=== PATIENT | female | born 1940 | race Caucasian/White ===

== ENCOUNTER 2017-11-01 01:03 | Inpatient (IN) ==
[2017-11-01] MEDS ORDERED: Morphine Inj 4 MG/ML Vial IV.PUSH ONE ×2 (01:40→03:16)
[2017-11-01 01:51] LABS: Bilirubin,Urine Negative (Negative); Clarity,Urine Hazy (Clear); Color,Urine Yellow (Yellw/Straw); Glucose,Urine (UA) Negative (Negative); Hyaline Casts,Urine 1 /lpf (0-3); Leukocyte Esterase,Urine Negative (Negative); Mucus,Urine Few /lpf (Occasional); Nitrite,Urine Negative (Negative); Specific Gravity,Urine 1.009 (1.002-1.035)
[2017-11-01 01:51] LABS: Baso # (Auto) 0.1 th/mm3 (0.0-0.2); Baso % (Auto) 0.4 % (0.0-2.0); Eos % (Auto) 0.4 % (0.0-4.0); Hematocrit 35.2 % (35.0-46.0); Hemoglobin 11.8 gm/dL (11.6-15.3); Lymph # (Auto) 0.4 th/mm3 (1.0-4.8); Lymph % (Auto) 3.2 % (9.0-44.0); Mean Corpuscular HGB Conc 33.4 % (32.0-36.0); Mean Corpuscular Hemoglobin 30.4 pg (27.0-34.0); Mean Platelet Volume 8.6 fL (7.0-11.0); Mono # (Auto) 0.9 th/mm3 (0.0-0.9); Mono % (Auto) 6.7 % (0.0-8.0); Neut # (Auto) 12.1 th/mm3 (1.8-7.7); Neut % (Auto) 89.3 % (16.0-70.0); Platelet Count 185 th/mm3 (150-450); Red Blood Count 3.87 mil/mm3 (4.00-5.30); Red Cell Distribution Width 12.8 % (11.6-17.2); White Blood Count 13.6 th/mm3 (4.0-11.0)
[2017-11-01 01:56] LABS: Activated Partial Thrombo Time 24.3 sec (24.3-30.1); Prothrombin Time 10.6 sec (9.8-11.6)
[2017-11-01 02:05] LABS: Alanine Aminotransferase 25 U/L (10-53); Albumin 3.6 g/dL (3.4-5.0); Anion Gap 8 meq/L (5-15); Aspartate Aminotransferase 37 U/L (15-37); Blood Urea Nitrogen 8 mg/dL (7-18); Calcium 7.7 mg/dL (8.5-10.1); Carbon Dioxide 25.1 meq/L (21.0-32.0); Chloride 104 meq/L (98-107); Glomerular Filtration Rate 76 mL/min (>89); Glucose,Random 98 mg/dL (74-106); Potassium 3.8 meq/L (3.5-5.1); Sodium 137 meq/L (136-145)
--- NOTE | 2017-11-01 02:05 | ED ---
HPI General Chief Complaint: Fall Stated Complaint: Fall Time Seen by Provider: 11/01/17 01:23 Source: patient Mode of arrival: EMS Limitations: no limitations History of Present Illness HPI Narrative: 76-year-old female presents to the emergency department from home by EMS transport for evaluation of injury to the right proximal lower extremity status post fall just prior to arrival to the emergency department. Patient admits to drinking bourbon prior to falling. Patient denies hitting her head or having loss of consciousness. Patient denies neck pain back pain chest pain rib pain sternum pain abdominal pain flank pain upper extremity injury or pain or injury to the left lower extremity. Patient reports pain is severe. Patient was unable to get up without any assistance or on her own. Patient was by herself at the time of the fall. Paramedics identified that she had soft tissue swelling affecting the proximal thigh area just distal to the hip. Patient has good peripheral pulses. Patient denies previous injury to the lower extremities but does report previous back surgery. Patient has received 6 mg of morphine IV prior to arrival to the emergency department. Patient denies other concerns or complaints. Patient states she rarely drinks bourbon but had decided to drink bourbon that was left over from her who recently from suicide and was a heavy alcohol consumer. Patient does not report any specific preceding symptoms such as headache dizziness altered mentation visual disturbance chest pain palpitations shortness of breath nausea vomiting abdominal pain flank pain upper or lower extremity new onset numbness tingling or weakness prior to her fall. Patient denies any medication use for anticoagulation. MD complaint: fall Onset (ago): minute(s) Fall from: standing Fall witnessed: no Place fall occurred: home Loss of consciousness: none Prolonged down time: no Symptoms prior to fall: none Context: alcohol use Location of injury: other Location of injury - extremities: Right: thigh Severity: severe Quality: aching Associated symptoms (after fall): unable to walk Related Data Home Medications Medication Instructions Recorded Confirmed alprazolam [Xanax] 0.5 mg PO HS 11/01/17 11/01/17 clonidine HCl 0.5 mg PO DAILY 11/01/17 11/01/17 lisinopril 40 mg PO DAILY 11/01/17 11/01/17 ranitidine HCl 150 mg PO DAILY 11/01/17 11/01/17 Allergies Allergy/AdvReac Type Severity Reaction Status Date / Time diatrizoate meglumine Allergy Severe ANAPHYLAXIS Verified 11/01/17 01:17 gadobenic acid Allergy Severe ANAPHYLAXIS Verified 11/01/17 01:17 gadodiamide Allergy Severe ANAPHYLAXIS Verified 11/01/17 01:17 gadoteridol Allergy Severe ANAPHYLAXIS Verified 11/01/17 01:17 iodixanol Allergy Severe ANAPHYLAXIS Verified 11/01/17 01:17 iohexol Allergy Severe ANAPHYLAXIS Verified 11/01/17 01:17 oxycodone Allergy Severe VOMITING Verified 11/01/17 01:17 Review of Systems ROS: all other systems reviewed are negative [facility] Medical History Medical History Barretts esophagus (Acute) Depression (Acute) GERD (gastroesophageal reflux disease) (Acute) Hypertension (Acute) Surgical History Surgical History History of partial hysterectomy (Acute) Hx of cholecystectomy (Acute) Hx of tonsillectomy (Acute) Social History Social History Substance History: No History of Abuse Smoking Status: Former smoker How Often Do You Have a Drink Containing Alcohol: Never Recent Travel in [place] within the Last 8 Weeks: No Recent Out of Country Travel within the Last 8 Weeks: No Immunization History Tetanus Immunization: Unsure Hx Influenza Vaccine This Season: No Exam Narrative Exam Narrative: GENERAL: Well-nourished, well-developed patient. Pleasant female in no acute distress no respiratory distress resting supine with GCS of 15 SKIN: Focused skin assessment warm/dry. HEAD: Normocephalic. Atraumatic no scalp soft tissue swelling tenderness abrasion ecchymosis and no laceration. EYES: No scleral icterus. No injection or drainage. NECK: Supple, trachea midline. No JVD or lymphadenopathy. No midline tenderness to direct palpation along the cervical spine no bony step-off. CARDIOVASCULAR: Regular rate and rhythm without murmurs, gallops, or rubs. RESPIRATORY: Breath sounds equal bilaterally. No accessory muscle use. GASTROINTESTINAL: Abdomen soft, non-tender, nondistended. MUSCULOSKELETAL: No cyanosis, or edema. Bilateral upper extremities and left lower extremity exams are grossly within normal range except for some various staged bruising; attention right lower extremity mild external rotation dorsalis pedis pulse and posterior tibialis pulses 2+ to palpation with brisk capillary refill less than 2 seconds per digit sensation intact and motor intact ankle and distally. Soft tissue swelling is noted to the proximal thigh area and palpation of pelvis increases complaint of thigh pain. BACK: Nontender without obvious deformity. No CVA tenderness. Course Reevaluation(s) Reevaluation #1: admitted to [facility] MD Dr Davenport Time: 03:33 Initial Documented Vital Signs Temperature 98.1 F 11/01/17 01:20 Pulse Rate 94 H 11/01/17 01:20 Respiratory Rate 18 11/01/17 01:20 Blood Pressure 174/67 H 11/01/17 01:20 Pulse Oximetry 96 11/01/17 01:20 Last Documented Vital Signs Temperature 98.1 F 11/01/17 01:20 Pulse Rate 97 H 11/01/17 02:19 Respiratory Rate 20 11/01/17 02:19 Blood Pressure 169/78 H 11/01/17 02:19 Pulse Oximetry 96 11/01/17 02:20 Medical Decision Making [facility] Narrative Medical decision making narrative: 76-year-old female presents to the emergency department for injury sustained status post a reported non-syncopal slip and fall with injury to the proximal right lower extremity. Patient placed on monitor with continuous pulse oximetry IV access obtained specimens collected and sent for resulting imaging studies ordered; patient administered morphine sulfate 3 mg IV had already received 6 mg IV prior to arrival to the emergency department also given a dose of Zofran 4 mg IV and maintenance Chest x-ray reveals no acute process femur x-ray is consistent with hip x-ray which shows intertrochanteric fracture of the right hip. Pelvis is unremarkable. Lab values are remarkable to a total white cell count 13,600 most likely reflects stress demargination. Chemistries in normal range. Call placed to medicine service for admission for hip fracture will consult or so. Medical Screen Exam Complete: Yes Emergency Medical Condition: Yes Lab Data Result diagrams: 11/01/17 01:32 11/01/17 01:32 Lab Results 11/01/17 11/01/17 11/01/17 Range/Units 01:32 01:32 01:32 WBC 13.6 H (4.0-11.0) th/mm3 RBC 3.87 L (4.00-5.30) mil/mm3 Hgb 11.8 (11.6-15.3) gm/dL Hct 35.2 (35.0-46.0) % MCV 91.0 (80.0-100.0) fL MCH 30.4 (27.0-34.0) pg MCHC 33.4 (32.0-36.0) % RDW 12.8 (11.6-17.2) % Plt Count 185 (150-450) th/mm3 MPV 8.6 (7.0-11.0) fL Neut % (Auto) 89.3 H (16.0-70.0) % Lymph % (Auto) 3.2 L (9.0-44.0) % [place] % (Auto) 6.7 (0.0-8.0) % Eos % (Auto) 0.4 (0.0-4.0) % Baso % (Auto) 0.4 (0.0-2.0) % Neut # (Auto) 12.1 H (1.8-7.7) th/mm3 Lymph # (Auto) 0.4 L (1.0-4.8) th/mm3 [place] # (Auto) 0.9 (0.0-0.9) th/mm3 Eos # (Auto) 0.0 (0.0-0.4) th/mm3 Baso # (Auto) 0.1 (0.0-0.2) th/mm3 WBC Differential . Differential Comment Auto diff final PT 10.6 (9.8-11.6) sec INR 1.0 Ratio APTT 24.3 (24.3-30.1) sec Sodium 137 (136-145) meq/L Potassium 3.8 (3.5-5.1) meq/L Chloride 104 (98-107) meq/L Carbon Dioxide 25.1 (21.0-32.0) meq/L Anion Gap 8 (5-15) meq/L BUN 8 (7-18) mg/dL Creatinine 0.74 (0.50-1.00) mg/dL Estimated GFR 76 L (>89) mL/min Random Glucose 98 (74-106) mg/dL Calcium 7.7 L (8.5-10.1) mg/dL Total Bilirubin 0.4 (0.2-1.0) mg/dL AST 37 (15-37) U/L ALT 25 (10-53) U/L Alkaline Phosphatase 61 (45-117) U/L Total Protein 6.3 L (6.4-8.2) g/dL Albumin 3.6 (3.4-5.0) g/dL Urine Color (Yellw/Straw) Urine Clarity (Clear) Urine pH (5.0-8.5) Ur Specific [place] (1.002-1.035) Urine Protein (Neg-Trace) mg/dL Urine Glucose (UA) (Negative) mg/dL Urine Ketones (Negative) mg/dL Urine Occult Blood (Negative) Urine Nitrate (Negative) Urine Bilirubin (Negative) Urine Urobilinogen (Less than 2) mg/dL Ur Leukocyte Esterase (Negative) Urine WBC (0-5) /hpf Hyaline Casts (0-3) /lpf Urine Mucus (Occasional) /lpf Serum Alcohol 108 H (0-5) mg/dL Blood Type Blood Type Recheck Antibody Screen 11/01/17 11/01/17 Range/Units 01:32 01:40 WBC (4.0-11.0) th/mm3 RBC (4.00-5.30) mil/mm3 Hgb (11.6-15.3) gm/dL Hct (35.0-46.0) % MCV (80.0-100.0) fL MCH (27.0-34.0) pg MCHC (32.0-36.0) % RDW (11.6-17.2) % Plt Count (150-450) th/mm3 MPV (7.0-11.0) fL Neut % (Auto) (16.0-70.0) % Lymph % (Auto) (9.0-44.0) % [place] % (Auto) (0.0-8.0) % Eos % (Auto) (0.0-4.0) % Baso % (Auto) (0.0-2.0) % Neut # (Auto) (1.8-7.7) th/mm3 Lymph # (Auto) (1.0-4.8) th/mm3 [place] # (Auto) (0.0-0.9) th/mm3 Eos # (Auto) (0.0-0.4) th/mm3 Baso # (Auto) (0.0-0.2) th/mm3 WBC Differential Differential Comment PT (9.8-11.6) sec INR Ratio APTT (24.3-30.1) sec Sodium (136-145) meq/L Potassium (3.5-5.1) meq/L Chloride (98-107) meq/L Carbon Dioxide (21.0-32.0) meq/L Anion Gap (5-15) meq/L BUN (7-18) mg/dL Creatinine (0.50-1.00) mg/dL Estimated GFR (>89) mL/min Random Glucose (74-106) mg/dL Calcium (8.5-10.1) mg/dL Total Bilirubin (0.2-1.0) mg/dL AST (15-37) U/L ALT (10-53) U/L Alkaline Phosphatase (45-117) U/L Total Protein (6.4-8.2) g/dL Albumin (3.4-5.0) g/dL Urine Color Yellow (Yellw/Straw) Urine Clarity Hazy H (Clear) Urine pH 5.0 (5.0-8.5) Ur Specific [place] 1.009 (1.002-1.035) Urine Protein Negative (Neg-Trace) mg/dL Urine Glucose (UA) Negative (Negative) mg/dL Urine Ketones Negative (Negative) mg/dL Urine Occult Blood Small H (Negative) Urine Nitrate Negative (Negative) Urine Bilirubin Negative (Negative) Urine Urobilinogen Less than 2 (Less than 2) mg/dL Ur Leukocyte Esterase Negative (Negative) Urine WBC Less than 1 (0-5) /hpf Hyaline Casts 1 (0-3) /lpf Urine Mucus Few H (Occasional) /lpf Serum Alcohol (0-5) mg/dL Blood Type A Negative Blood Type Recheck Required Antibody Screen Negative Imaging Data Radiologist's impression: Chest X-Ray 11/01/17 01:23 CONCLUSION: No acute cardiopulmonary disease. Femur X-Ray 11/01/17 01:23 CONCLUSION: Seen in the hip reported separately. Remaining femur is intact. Hip X-Ray 11/01/17 01:23 CONCLUSION: Right intertrochanteric hip fracture. Discharge Plan Discharge Disposition Patient Disposition: 30 Still Patient Discharge Condition Condition: Stable Discharge Details Diagnosis: Closed hip fracture Physicians Team ED Provider: Brandi Martinez Primary Care Provider: UNKNOWN, Attending Provider: Estrellita Davenport Discharge Interventions Interventions: Vital Signs Last Done: 11/01/17 02:19 Status ED Status: Admitted Patient
[2017-11-01 02:08] LABS: Alkaline Phosphatase 61 U/L (45-117); Total Protein 6.3 g/dL (6.4-8.2)
[2017-11-01 02:09] LABS: Alcohol 108 mg/dL (0-5)
--- NOTE | 2017-11-01 02:32 | XR ---
EXAM DATE: 11/01/2017 2:16 AM EDT AGE/SEX: 76 years / Female INDICATIONS: Right hip pain post fall. CLINICAL DATA: This is the patient's initial encounter. Patient reports that signs and symptoms have been present for 1 day and indicates a pain score of 10/10. MEDICAL/SURGICAL HISTORY: None. None. COMPARISON: [facility] [place] AP PELVIS 2V, 11/01/2017. . FINDINGS: Seen in the right hip report separately. The remaining aspects of the femur are intact. Soft tissues are unremarkable. Mild osteoarthritis involving the knee joint. CONCLUSION: Seen in the hip reported separately. Remaining femur is intact. Electronically signed by: Pranav Dos Santos MD 11/01/2017 2:31 AM EDT
--- NOTE | 2017-11-01 02:32 | XR ---
EXAM DATE: 11/01/2017 2:16 AM EDT AGE/SEX: 76 years / Female INDICATIONS: Evaluate for any cardiopulmonary diseases as patient is being pre-oped for hip surgery, fall. CLINICAL DATA: This is the patient's initial encounter. Patient reports that signs and symptoms have been present for 1 day and indicates a pain score of 0/10. MEDICAL/SURGICAL HISTORY: None. None. COMPARISON: [facility], XR CHEST PA AND LAT, 04/13/2017. . FINDINGS: A single AP view of the chest demonstrates the lungs to be symmetrically aerated without evidence of mass, infiltrate or effusion. The cardiomediastinal contours are unremarkable. Osseous structures a re intact. CONCLUSION: No acute cardiopulmonary disease. Electronically signed by: Pranav Dos Santos MD 11/01/2017 2:30 AM EDT
--- NOTE | 2017-11-01 02:33 | XR ---
EXAM DATE: 11/01/2017 2:17 AM EDT AGE/SEX: 76 years / Female INDICATIONS: Right hip pain post fall. CLINICAL DATA: This is the patient's initial encounter. Patient reports that signs and symptoms have been present for 1 day and indicates a pain score of 10/10. MEDICAL/SURGICAL HISTORY: None. None. COMPARISON: No prior exams available for comparison. FINDINGS: 3 views of the pelvis and right hip reveal acute intertrochanteric hip fracture on the right. Femoral head remains in contact with the acetabulum. The remaining pelvis is intact. CONCLUSION: Right intertrochanteric hip fracture. Electronically signed by: Pranav Dos Santos MD 11/01/2017 2:31 AM EDT
[2017-11-01] MEDS ORDERED: Pantoprazole Inj 40 MG Vial IV.PUSH ONE (03:16)
[2017-11-01] MEDS ORDERED: Ketorolac Inj 30 MG/ML (IVP) Vial IV.PUSH ONE (03:16)
[2017-11-01] MEDS ORDERED: Acetaminophen 325 MG Tablet PO PRN (04:06)
[2017-11-01] MEDS ORDERED: Morphine Inj 4 MG/ML Vial IV.PUSH PRN ×3 (04:10→06:50)
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
[2017-11-01] MEDS ORDERED: Metoprolol Tartrate 25 MG Tablet PO SCH (06:15)
[2017-11-01] MEDS ORDERED: Chlorhexidine Gluconate 2% 1 Pack (2 Cloths) TOPICAL SCH (06:15)
[2017-11-01] MEDS ORDERED: Famotidine PF Inj 20 MG/2 ML Vial ONE (06:20)
[2017-11-01] MEDS ORDERED: fentaNYL Citrate Inj 100 MCG/2 ML Ampul ONE (06:20)
[2017-11-01] MEDS ORDERED: Bisacodyl 10 MG Supp RECTAL PRN (06:50)
[2017-11-01] MEDS ORDERED: Zolpidem Tartrate 5 MG Tablet PO PRN (06:50)
[2017-11-01] MEDS ORDERED: Sodium Chlor 0.9% Inj 500 ML IV.SIG SCH (07:00)
--- NOTE | 2017-11-01 07:27 | MB ---
cc: Sudeep Jenkins MD DATE: 11/01/2017 REASON FOR CONSULTATION: Right intertrochanteric hip fracture. HISTORY OF PRESENT ILLNESS: A 76-year-old female with past history of hypertension, asthma, who presented to [facility] Emergency Room after a mechanical fall. She was having some alcohol the evening before and tripped and fell landing on the right hip. She developed severe onset of right hip pain. She was unable to stand, bear weight, or ambulate. She was brought in by ambulance to [facility] Emergency Room. X-rays confirmed evidence of displaced comminuted right intertrochanteric hip fracture. Pain is severe and constant. She is worse with any movement. No numbness, tingling, nerve referred symptoms. PAST MEDICAL HISTORY: Hypertension, asthma, Cordon esophagitis, depression, gastric reflux, hypertension. PAST SURGICAL HISTORY: Includes partial hysterectomy, cholecystectomy, tonsillectomy. FAMILY HISTORY: Reviewed and noncontributory. SOCIAL HISTORY: Former smoker, occasionally drinks alcohol. No substance abuse. REVIEW OF SYSTEMS: Negative for 10 systems other than in HPI. HOME MEDICATIONS: Reviewed per the [facility], which includes 1. Xanax. 2. Clonidine. 3. Lisinopril. 4. Zantac. PHYSICAL EXAMINATION: VITAL SIGNS: Temperature 98.1, pulse 94, respirations 18, blood pressure 174/67. GENERAL: The patient is awake, alert, lying in bed, in mild distress. She is anxious. HEENT: Normocephalic, atraumatic. Pupils round. Extraocular muscles intact. NECK: Supple. LUNGS: Clear. HEART: Regular rate and rhythm. ABDOMEN: Soft, nontender. EXTREMITIES: The right leg is shortened and externally rotated. She has pain with passive motion of the right hip. She can flex and extend her ankle and toes distally. Sensation appears intact distally. LABORATORY DATA: White blood cell count is 13.6, hemoglobin is 11, hematocrit is 35, platelet is 185, BUN is 8, creatinine is 0.74. Glucose is 98. X-rays of right hip reveal a comminuted displaced right intertrochanteric hip fracture. IMPRESSION: A 76-year-old female, status post fall, right displaced intertrochanteric hip fracture. PLAN: I discussed the diagnosis and treatment options, nonoperative treatment versus surgery. Surgery would consist of open reduction and internal fixation with intramedullary nailing. The risks of surgery were discussed, which include, but are not limited to, anesthesia, bleeding, infection, damage to nerves and blood vessels, pain, stiffness, failure of hardware, nonunion, malunion, blood clots, pulmonary illness, and even . The patient's pain was very severe. She understood the risks and does wish to proceed with surgery. Written consent has been obtained. The surgical site has been marked. Sudeep Jenkins MD JWM/ts , 06:50 AM , 06:58 AM
[2017-11-01] MEDS ORDERED: Post-op Orders (for Pharmacy) OTHER STA (08:35)
--- NOTE | 2017-11-01 09:06 | MP ---
cc: Sudeep Jenkins MD DATE OF OPERATION: 11/01/2017 PREOPERATIVE DIAGNOSIS: Right intertrochanteric hip fracture. POSTOPERATIVE DIAGNOSIS: Right intertrochanteric hip fracture. PROCEDURE PERFORMED: Intramedullary nailing, right intertrochanteric hip fracture. SURGEON: Sudeep Jenkins MD. GAUGE AND INSTRUMENT INSPECTOR: THOMAS Mcleod. ANESTHESIA: General. ESTIMATED BLOOD LOSS: 200 mL. COMPLICATIONS: None. IMPLANTS USED: Synthes. JUSTIFICATION: This patient is a 76-year-old female who fell and sustained a displaced comminuted right intertrochanteric hip fracture. She presents to [facility] Emergency Room. X-rays confirmed the above named findings. Orthopedic surgery counseled. The patient was counseled as to the risks, benefits, and alternatives to the above-named proposed surgical procedure. She did wish to proceed with surgery. PROCEDURE IN DETAIL: Written consent was obtained. The patient was identified by name, taken to the operating room, placed supine on the bed. General anesthesia was administered, as well as 2 grams of IV Ancef and 1 gram IV vancomycin. The right foot placed in a padded traction boot. The left leg placed in a padded well leg hartman. All bony prominences and pressure points were well padded. The right hip and right lower extremity were prepped and draped using isopropyl alcohol, Hibiclens solution, and ChloraPrep solution. After a timeout was performed, a longitudinal incision was made in the lateral aspect of the right hip. The fascial layer was incised. A guidewire was used to gain entrance into the intramedullary canal of the femur from the tip of the greater trochanter. This was followed by cannulated entry reamer. Subsequently, a Synthes 11 x 170 mm titanium trochanteric femoral nail was inserted into the intramedullary canal of the femur. The 130-degree jig was used to place the guide pin centered in the femoral head on the AP and lateral fluoroscopic projections. This was followed by placement of a 95 mm partially threaded titanium lag screw. The top locking screw was then secured to create a fixed angle sliding construct and compression was achieved across the fracture. Fluoroscopic imaging again confirmed hardware placement and fracture reduction. Distally, the locking jig was used to place a single lateral to medial transverse static locking screw. Fluoroscopic imaging again confirmed hardware placement and fracture reduction. The surgical wound was thoroughly irrigated with sterile saline solution. The fascial layer was closed with #1 Vicryl suture, subcutaneous layer with 2-0 Vicryl suture, and skin was closed with Dermabond. Sterile dressing applied. The patient tolerated the procedure well. No intraoperative complications noted. Randy Richards PA-C, was present for the entire procedure to include patient positioning and the procedure itself. The medical necessity of a physician clinical laboratory assistant was indicated in this case due to complexity of the procedure. He assisted with appropriate manipulation of the leg and also retraction of muscle, tendon, bone, and neurovascular structures. He assisted with fracture reduction and implantation of the internal fixation device. MD ADAM Sharma/derek , 08:17 AM , 08:24 AM
[2017-11-01] MEDS: Sod Chloride 0.9% Inj 1,000 ML IV.CONT SCH ×2 (09:23→17:53)
[2017-11-01] MEDS: Multivitamin/Minerals Therapeutic Tablet PO SCH (10:24)
[2017-11-01] MEDS: Famotidine 20 MG Tablet PO SCH (10:25)
[2017-11-01] MEDS: Senna/Docusate Sodium 8.6/50 MG Tablet PO SCH ×2 (10:26→21:22)
[2017-11-01] MEDS: Lisinopril 20 MG Tablet PO SCH (10:26)
[2017-11-01] MEDS: Folic Acid 1 MG Tablet PO SCH (10:26)
[2017-11-01] MEDS ORDERED: Lidocaine PF 1% Inj 5 ML Syringe INFILTRATN ONE (12:00)
[2017-11-01] MEDS ORDERED: Phenylephrine/NS 1000 MCG/10ML Syringe IV.PUSH ONE (12:00)
--- NOTE | 2017-11-01 12:57 | P.PN ---
Subjective Interval history: Follow up right hip fracture s/p repair 11/01/17-patient seen and examined; s/p right hip repair this AM. patient denies any pain. 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, however she is refusing any psychiatry eval Physical Exam Vital signs: Vital Signs 11/01/17 01:20 11/01/17 02:19 11/01/17 02:20 Temperature 98.1 F Pulse Rate 94 H 97 H Respiratory Rate 18 20 Blood Pressure 174/67 H 169/78 H Pulse Oximetry 96 96 96 11/01/17 05:49 11/01/17 08:00 11/01/17 08:35 Temperature 97.8 F 97.5 F L 97.6 F Pulse Rate 107 H 111 H 105 H Respiratory Rate 19 20 20 Blood Pressure 148/91 H 129/77 151/72 H Pulse Oximetry 95 94 L 95 11/01/17 08:45 11/01/17 09:00 11/01/17 09:10 Temperature Pulse Rate 118 H 110 H 113 H Respiratory Rate 18 15 Blood Pressure 160/66 H 153/69 H Pulse Oximetry 95 100 99 11/01/17 09:13 11/01/17 10:42 Temperature 97.8 F Pulse Rate 113 H Respiratory Rate 18 Blood Pressure 151/65 H Pulse Oximetry 99 98 Intake & Output 10/31/17 11/01/17 11/01/17 18:59 06:59 18:59 Intake Total 1500 / 1500 Output Total 500 / 500 200 / 200 Balance -500 / -500 1300 / 1300 Weight 56.6 kg Intake: Anesthesia Amount 1500 / 1500 Output: Estimated Blood Loss 200 / 200 Urine Amount (Catheter) 500 / 500 Indwelling Urethral Catheter 500 / 500 Other: Weight On Admission 56.699 kg Narrative: GENERAL: NAD SKIN: Warm and dry. HEAD: Normocephalic. EYES: No scleral icterus. No injection or drainage. NECK: Supple, trachea midline. No JVD or lymphadenopathy. CARDIOVASCULAR: Regular rate and rhythm without murmurs, gallops, or rubs. RESPIRATORY: Breath sounds equal bilaterally. No accessory muscle use. GASTROINTESTINAL: Abdomen soft, non-tender, nondistended. MUSCULOSKELETAL: No cyanosis, or edema. right hip repair-neurovascular intact BACK: Nontender without obvious deformity. No CVA tenderness. - Urinary Catheter Management Indwelling Urethral Catheter Cath placed during this visit: yes Reason for continuing: Hourly intake/output Insertion date: 11/01/17 Insertion time: 03:52 Results - Labs CBC & Chem 7: 11/01/17 01:32 11/01/17 01:32 Laboratory Results - last 24 hr 11/01/17 11/01/17 11/01/17 01:32 01:32 01:32 WBC 13.6 H RBC 3.87 L Hgb 11.8 Hct 35.2 MCV 91.0 MCH 30.4 MCHC 33.4 RDW 12.8 Plt Count 185 MPV 8.6 Neut % (Auto) 89.3 H Lymph % (Auto) 3.2 L [place] % (Auto) 6.7 Eos % (Auto) 0.4 Baso % (Auto) 0.4 Neut # (Auto) 12.1 H Lymph # (Auto) 0.4 L [place] # (Auto) 0.9 Eos # (Auto) 0.0 Baso # (Auto) 0.1 WBC Differential . Differential Comment Auto diff final PT 10.6 INR 1.0 APTT 24.3 Sodium 137 Potassium 3.8 Chloride 104 Carbon Dioxide 25.1 Anion Gap 8 BUN 8 Creatinine 0.74 Estimated GFR 76 L Random Glucose 98 Calcium 7.7 L Total Bilirubin 0.4 AST 37 ALT 25 Alkaline Phosphatase 61 Total Protein 6.3 L Albumin 3.6 Urine Color Urine Clarity Urine pH Ur Specific [place] Urine Protein Urine Glucose (UA) Urine Ketones Urine Occult Blood Urine Nitrate Urine Bilirubin Urine Urobilinogen Ur Leukocyte Esterase Urine WBC Hyaline Casts Urine Mucus Serum Alcohol 108 H Blood Type Blood Type Recheck Antibody Screen 11/01/17 11/01/17 01:32 01:40 WBC RBC Hgb Hct MCV MCH MCHC RDW Plt Count MPV Neut % (Auto) Lymph % (Auto) [place] % (Auto) Eos % (Auto) Baso % (Auto) Neut # (Auto) Lymph # (Auto) [place] # (Auto) Eos # (Auto) Baso # (Auto) WBC Differential Differential Comment PT INR APTT Sodium Potassium Chloride Carbon Dioxide Anion Gap BUN Creatinine Estimated GFR Random Glucose Calcium Total Bilirubin AST ALT Alkaline Phosphatase Total Protein Albumin Urine Color Yellow Urine Clarity Hazy H Urine pH 5.0 Ur Specific [place] 1.009 Urine Protein Negative Urine Glucose (UA) Negative Urine Ketones Negative Urine Occult Blood Small H Urine Nitrate Negative Urine Bilirubin Negative Urine Urobilinogen Less than 2 Ur Leukocyte Esterase Negative Urine WBC Less than 1 Hyaline Casts 1 Urine Mucus Few H Serum Alcohol Blood Type A Negative Blood Type Recheck Required Antibody Screen Negative - Imaging Impressions Chest X-Ray 11/01/17 01:23 CONCLUSION: No acute cardiopulmonary disease. Femur X-Ray 11/01/17 01:23 CONCLUSION: Seen in the hip reported separately. Remaining femur is intact. Hip X-Ray 11/01/17 01:23 CONCLUSION: Right intertrochanteric hip fracture. Assessment and Plan - Plan 76 years old female with 1. Right intertrochanteric hip fracture s/p Right hip repair 11/01/17 management per Ortho PT to treat and eval Pain management accordingly 2. Hypertension Continue home clonidine and lisinopril 3. Anxiety/depression Continue home Xanax patient does not want any eval from Psychiatry 4. GERD Continue home ranitidine
--- NOTE | 2017-11-01 17:06 | ECG ---
Date Performed: 11/01/2017 Time Performed: 02:11:12 PTAGE: 76 years EKG: Sinus rhythm POSSIBLE LEFT ATRIAL ENLARGEMENT MARKED LEFT AXIS DEVIATION RIGHT BUNDLE BRANCH BLOCK ABNORMAL ECG NO PREVIOUS TRACING DOCTOR: Sunil Umanzor Interpretating Date/Time 11/01/2017 17:05:09
[2017-11-01] MEDS: ceFAZolin Inj 2,000 MG in Sodium Chlor 0.9% Inj 80 ML IV.SIG SCH ×2 (17:52→22:47)
[2017-11-01] MEDS: ALPRAZolam 0.5 MG Tablet PO SCH (21:22)
[2017-11-01] MEDS ORDERED: Famotidine 20 MG Tablet PO SCH (22:00)
[2017-11-02] MEDS: Sod Chloride 0.9% Inj 1,000 ML IV.CONT SCH ×2 (06:28→19:16)
[2017-11-02] MEDS: ceFAZolin Inj 2,000 MG in Sodium Chlor 0.9% Inj 80 ML IV.SIG SCH (06:29)
--- NOTE | 2017-11-02 08:48 | P.PNOP ---
Subjective Interval history: pain tolerable. has anxiety. Physical Exam Vital signs: Vital Signs 11/01/17 09:00 11/01/17 09:10 11/01/17 09:13 Temperature 97.8 F Pulse Rate 110 H 113 H 113 H Respiratory Rate 15 18 Blood Pressure 153/69 H 151/65 H Pulse Oximetry 100 99 99 11/01/17 10:42 11/01/17 12:00 11/01/17 16:00 Temperature 97.3 F L 97.2 F L Pulse Rate 120 H 103 H Respiratory Rate 20 16 Blood Pressure 117/65 96/57 L Pulse Oximetry 98 93 L 94 L 11/01/17 20:00 11/02/17 00:00 11/02/17 04:00 Temperature 98.0 F 97.7 F 98.5 F Pulse Rate 104 H 97 H 100 H Respiratory Rate 22 18 17 Blood Pressure 100/54 L 106/61 103/57 L Pulse Oximetry 93 L 98 97 Intake & Output 11/01/17 11/02/17 11/02/17 18:59 06:59 18:59 Intake Total 2600 / 2600 100 / 100 100 / 100 Output Total 200 / 200 650 / 650 Balance 2400 / 2400 -550 / -550 100 / 100 Weight 56.6 kg Intake: IV 1100 / 1100 100 / 100 100 / 100 LR 1000 mL Inj 1,000 ML @ 100 1000 / 1000 mls/hr IV.CONT .Q10H FRANCHESCA Rx#: [id number] Ancef Inj 2,000 MG In NS Inj 80 100 / 100 100 / 100 100 / 100 ML @ 200 mls/hr IV.SIG Q8H FRANCHESCA Rx#:[id number] Anesthesia Amount 1500 / 1500 Output: Urine 650 / 650 Estimated Blood Loss 200 / 200 Other: # Bowel Movements 2 Narrative: in bed, nad dressing c/d/i neg homans nvi - Urinary Catheter Management Indwelling Urethral Catheter Cath placed during this visit: yes Reason for continuing: Hourly intake/output Insertion date: 11/01/17 Insertion time: 03:52 Results - Labs CBC & Chem 7: 11/01/17 01:32 11/01/17 01:32 Assessment and Plan - Ortho Post Op Day # 1 - Assessment and Plan s/p L troch nail 50% pwb daily dressing changes asa 81 d/c planning to snf f/up dr. cadet 2 weeks
[2017-11-02 09:05] LABS: Baso % (Auto) 0.4 % (0.0-2.0); Eos % (Auto) 0.5 % (0.0-4.0); Hematocrit 25.2 % (35.0-46.0); Hemoglobin 8.6 gm/dL (11.6-15.3); Lymph # (Auto) 0.7 th/mm3 (1.0-4.8); Lymph % (Auto) 10.2 % (9.0-44.0); Mean Corpuscular Hemoglobin 31.4 pg (27.0-34.0); Mean Corpuscular Volume 92.5 fL (80.0-100.0); Mean Platelet Volume 8.8 fL (7.0-11.0); Mono # (Auto) 1.2 th/mm3 (0.0-0.9); Mono % (Auto) 17.2 % (0.0-8.0); Neut # (Auto) 4.9 th/mm3 (1.8-7.7); Neut % (Auto) 71.7 % (16.0-70.0); Platelet Count 186 th/mm3 (150-450); Red Blood Count 2.72 mil/mm3 (4.00-5.30); Red Cell Distribution Width 13.1 % (11.6-17.2); White Blood Count 6.8 th/mm3 (4.0-11.0)
[2017-11-02] MEDS: Multivitamin/Minerals Therapeutic Tablet PO SCH (09:17)
[2017-11-02] MEDS: Senna/Docusate Sodium 8.6/50 MG Tablet PO SCH ×2 (09:17→21:38)
[2017-11-02] MEDS: Folic Acid 1 MG Tablet PO SCH (09:17)
[2017-11-02] MEDS: Famotidine 20 MG Tablet PO SCH (09:17)
[2017-11-02] MEDS: Enoxaparin Inj 40 MG/0.4 ML Syringe SQ SCH (09:17)
[2017-11-02] MEDS: Lisinopril 20 MG Tablet PO SCH (09:18)
[2017-11-02 09:46] LABS: Calcium 7.3 mg/dL (8.5-10.1)
[2017-11-02 10:18] LABS: Total Protein 5.2 g/dL (6.4-8.2)
--- NOTE | 2017-11-02 10:54 | P.PN ---
Subjective Interval history: Follow-up visit for right intertrochanteric hip fracture s/p repair, anxiety and depression. Patient is seen and examined sitting up in chair, patient reports pain 4/10, also complaining of left sided rib pain, states she has had broken ribs in the past and feels about the same. She denies any SOB, cough, fevers, chills, N/V, or abdominal pain. Nausea yesterday with pain medication, none now. Physical Exam Vital signs: Vital Signs 11/01/17 12:00 11/01/17 16:00 11/01/17 20:00 Temperature 97.3 F L 97.2 F L 98.0 F Pulse Rate 120 H 103 H 104 H Respiratory Rate 20 16 22 Blood Pressure 117/65 96/57 L 100/54 L Pulse Oximetry 93 L 94 L 93 L 11/02/17 00:00 11/02/17 04:00 11/02/17 08:00 Temperature 97.7 F 98.5 F 98 F Pulse Rate 97 H 100 H 110 H Respiratory Rate 18 17 18 Blood Pressure 106/61 103/57 L 107/68 Pulse Oximetry 98 97 95 Intake & Output 11/01/17 11/02/17 11/02/17 18:59 06:59 18:59 Intake Total 2600 / 2600 100 / 100 100 / 100 Output Total 200 / 200 650 / 650 Balance 2400 / 2400 -550 / -550 100 / 100 Weight 56.6 kg Intake: IV 1100 / 1100 100 / 100 100 / 100 LR 1000 mL Inj 1,000 ML @ 100 1000 / 1000 mls/hr IV.CONT .Q10H FRANCHESCA Rx#: [id number] Ancef Inj 2,000 MG In NS Inj 80 100 / 100 100 / 100 100 / 100 ML @ 200 mls/hr IV.SIG Q8H FRANCHESCA Rx#:[id number] Anesthesia Amount 1500 / 1500 Output: Urine 650 / 650 Estimated Blood Loss 200 / 200 Other: # Bowel Movements 2 Narrative: GENERAL: Well-nourished, well-developed female sitting up in chair. SKIN: Warm and dry. HEAD: Atraumatic. Normocephalic. EYES: Pupils equal and round. No scleral icterus or drainage. ENT: No nasal bleeding or discharge. Mucous membranes pink and moist. NECK: Trachea midline. No JVD. CARDIOVASCULAR: Regular rate and rhythm. RESPIRATORY: No accessory muscle use. Clear to auscultation. Breath sounds equal bilaterally. GASTROINTESTINAL: Abdomen soft, non-tender, nondistended. MUSCULOSKELETAL: Extremities without clubbing, cyanosis, or edema. No obvious deformities. right hip dressing with minimal dry sanguinous drainage noted. NEUROLOGICAL: Awake and alert. No obvious cranial nerve deficits. Motor grossly within normal limits. Normal speech. PSYCHIATRIC: Appropriate mood and affect; insight and judgment normal. - Urinary Catheter Management Indwelling Urethral Catheter Cath placed during this visit: yes Reason for continuing: Hourly intake/output Insertion date: 11/01/17 Insertion time: 03:52 Results - Labs CBC & Chem 7: 11/02/17 08:49 11/02/17 08:49 Laboratory Results - last 24 hr 11/02/17 11/02/17 08:49 08:49 WBC 6.8 RBC 2.72 L Hgb 8.6 L D Hct 25.2 L MCV 92.5 MCH 31.4 MCHC 34.0 RDW 13.1 Plt Count 186 MPV 8.8 Neut % (Auto) 71.7 H Lymph % (Auto) 10.2 [place] % (Auto) 17.2 H Eos % (Auto) 0.5 Baso % (Auto) 0.4 Neut # (Auto) 4.9 Lymph # (Auto) 0.7 L [place] # (Auto) 1.2 H Eos # (Auto) 0.0 Baso # (Auto) 0.0 WBC Differential . Differential Comment Auto diff final Sodium 134 L Potassium 4.0 Chloride 101 Carbon Dioxide 24.0 Anion Gap 9 BUN 21 H Creatinine 1.12 H Estimated GFR 47 L Random Glucose 118 H Calcium 7.3 L* Prot Corrected Calcium 8.3 L Total Protein 5.2 L D Assessment and Plan - Plan 76 years old female with Right intertrochanteric hip fracture s/p Right hip repair 11/01/17 management per Ortho PT to treat and eval Pain management accordingly Hypertension Continue home clonidine and lisinopril BP stable, mild tachycardia noted possibly secondary to anxiety Anxiety/depression Continue home Xanax patient does not want any eval from Psychiatry GERD Continue home ranitidine DVT prophylaxisLovenox Discussed Condition With: Discussed with patient and RN
[2017-11-02] MEDS: ALPRAZolam 0.5 MG Tablet PO SCH (21:38)
--- NOTE | 2017-11-03 07:34 | P.PNOP ---
Subjective Interval history: not taking pain meds as they make her nauseous. Physical Exam Vital signs: Vital Signs 11/02/17 08:00 11/02/17 11:51 11/02/17 12:00 Temperature 98 F 97.6 F Pulse Rate 110 H 115 H Respiratory Rate 18 14 20 Blood Pressure 107/68 110/55 L Pulse Oximetry 95 96 11/02/17 12:36 11/02/17 16:00 11/02/17 20:00 Temperature 98.6 F 98.5 F Pulse Rate 111 H 110 H Respiratory Rate 20 18 Blood Pressure 125/61 134/63 Pulse Oximetry 93 L 95 96 11/03/17 00:00 11/03/17 04:00 Temperature 98.6 F 99.4 F Pulse Rate 120 H 123 H Respiratory Rate 19 18 Blood Pressure 157/76 H 132/66 Pulse Oximetry 95 97 Intake & Output 11/02/17 11/03/17 11/03/17 18:59 06:59 18:59 Intake Total 2180 / 2180 Balance 2180 / 2180 Weight 56.6 kg Intake: IV 1100 / 1100 LR 1000 mL Inj 1,000 ML @ 100 1000 / 1000 mls/hr IV.CONT .Q10H FRANCHESCA Rx#: [id number] Ancef Inj 2,000 MG In NS Inj 80 100 / 100 ML @ 200 mls/hr IV.SIG Q8H FRANCHESCA Rx#:[id number] Oral 1080 / 1080 Other: # Voids 3 9 Date of Last Bowel Movement 11/02/17 11/02/17 # Bowel Movements 1 Narrative: in bed, nad bloody drainage on dressing neg natan nvi - Urinary Catheter Management Indwelling Urethral Catheter Cath placed during this visit: yes, but has since been removed by the nurse Reason for continuing: Hourly intake/output Insertion date: 11/01/17 Insertion time: 03:52 Removal date: 11/02/17 Removal time: 12:00 Results - Labs CBC & Chem 7: 11/02/17 08:49 11/02/17 08:49 Laboratory Results - last 24 hr 11/02/17 11/02/17 08:49 08:49 WBC 6.8 RBC 2.72 L Hgb 8.6 L D Hct 25.2 L MCV 92.5 MCH 31.4 MCHC 34.0 RDW 13.1 Plt Count 186 MPV 8.8 Neut % (Auto) 71.7 H Lymph % (Auto) 10.2 [place] % (Auto) 17.2 H Eos % (Auto) 0.5 Baso % (Auto) 0.4 Neut # (Auto) 4.9 Lymph # (Auto) 0.7 L [place] # (Auto) 1.2 H Eos # (Auto) 0.0 Baso # (Auto) 0.0 WBC Differential . Differential Comment Auto diff final Sodium 134 L Potassium 4.0 Chloride 101 Carbon Dioxide 24.0 Anion Gap 9 BUN 21 H Creatinine 1.12 H Estimated GFR 47 L Random Glucose 118 H Calcium 7.3 L* Prot Corrected Calcium 8.3 L Total Protein 5.2 L D Assessment and Plan - Ortho Post Op Day # 2 - Assessment and Plan s/p L troch nail 50% pwb daily dressing changes lovenox try tramadol d/c planning to snf f/up dr. cadet 2 weeks
[2017-11-03 08:18] LABS: Hematocrit 22.2 % (35.0-46.0); Hemoglobin 7.7 gm/dL (11.6-15.3)
[2017-11-03] MEDS: Lisinopril 20 MG Tablet PO SCH (08:46)
[2017-11-03] MEDS: Famotidine 20 MG Tablet PO SCH (08:46)
[2017-11-03] MEDS: Senna/Docusate Sodium 8.6/50 MG Tablet PO SCH ×2 (08:47→21:48)
[2017-11-03] MEDS: Folic Acid 1 MG Tablet PO SCH (08:47)
[2017-11-03] MEDS: Multivitamin/Minerals Therapeutic Tablet PO SCH (08:47)
[2017-11-03] MEDS: Enoxaparin Inj 40 MG/0.4 ML Syringe SQ SCH (08:47)
[2017-11-03] MEDS: Sod Chloride 0.9% Inj 1,000 ML IV.CONT SCH (08:48)
--- NOTE | 2017-11-03 09:41 | XR ---
EXAM DATE: 11/03/2017 8:40 AM EDT AGE/SEX: 76 years / Female INDICATIONS: ORIF RIGHT HIP CLINICAL DATA: This is the patient's initial encounter. Patient reports that signs and symptoms have been present for 1 day and indicates a pain score of Nonresponsive. MEDICAL/SURGICAL HISTORY: . None. COMPARISON: No prior exams available for comparison. FINDINGS: Anatomic alignment on single AP spot film following ORIF right hip. CONCLUSION: Anatomic alignment in the AP projection. Electronically signed by: Pino Hwang MD 11/03/2017 9:40 AM EDT
--- NOTE | 2017-11-03 09:59 | P.PN ---
Subjective Interval history: Patient is seen and examined sitting up on the side of the bed working with physical therapy this morning. She denies any dizziness, lightheadedness, cough , shortness of breath, or chest pain. Reports she had a restless night due to pain, has not taken any pain medication due to nausea. Today she took tramadol for pain relief. Discussed anemia as well as tachycardia, will get 1 unit of PRBCs today. Patient around noon today due to hypotension. Patient was working with PT and her BP dropped with systolic BP in the 60s-70s and diastolic in the 40s-50s. Telemetry count was called and patient was transferred to surgical ICU unit. She was started on Isidro-Synephrine for hypotension and also received 1 unit of PRBCs. Return to [facility] to once again examined patient. She is awake, alert, oriented resting in bed, appears to be in no acute distress. She reports that her blood pressure dropped earlier today but denies any dizziness or lightheadedness prior to or during episode. Denies any chest pain, shortness of breath, nausea , vomiting, headache or dizziness at the moment. Patient reports that she does not normally take clonidine unless her blood pressure was elevated and she received this today, believes this attributed to her low blood pressure. Clonidine was discontinued, lisinopril placed on hold. Patient has received 1 unit of PRBCs, recheck H&H now. Currently on Isidro-Synephrine drip, 40 mcg, wean off as tolerated. Physical Exam Vital signs: Vital Signs 11/02/17 11:51 11/02/17 12:00 11/02/17 12:36 Temperature 97.6 F Pulse Rate 115 H Respiratory Rate 14 20 Blood Pressure 110/55 L Pulse Oximetry 96 93 L 11/02/17 16:00 11/02/17 20:00 11/03/17 00:00 Temperature 98.6 F 98.5 F 98.6 F Pulse Rate 111 H 110 H 120 H Respiratory Rate 20 18 19 Blood Pressure 125/61 134/63 157/76 H Pulse Oximetry 95 96 95 11/03/17 04:00 11/03/17 08:00 Temperature 99.4 F 98.8 F Pulse Rate 123 H 116 H Respiratory Rate 18 18 Blood Pressure 132/66 135/61 Pulse Oximetry 97 94 L Intake & Output 11/02/17 11/03/17 11/03/17 18:59 06:59 18:59 Intake Total 2180 / 2180 Balance 2180 / 2180 Weight 56.6 kg Intake: IV 1100 / 1100 LR 1000 mL Inj 1,000 ML @ 100 1000 / 1000 mls/hr IV.CONT .Q10H FRANCHESCA Rx#: [id number] Ancef Inj 2,000 MG In NS Inj 80 100 / 100 ML @ 200 mls/hr IV.SIG Q8H FRANCHESCA Rx#:[id number] Oral 1080 / 1080 Other: # Voids 3 9 Date of Last Bowel Movement 11/02/17 11/02/17 11/02/17 # Bowel Movements 1 - Urinary Catheter Management Indwelling Urethral Catheter Cath placed during this visit: yes, but has since been removed by the nurse Reason for continuing: Hourly intake/output Insertion date: 11/01/17 Insertion time: 03:52 Removal date: 11/02/17 Removal time: 12:00 Results - Labs CBC & Chem 7: 11/03/17 07:18 11/03/17 08:50 Laboratory Results - last 24 hr 11/02/17 11/03/17 08:49 07:18 Hgb 7.7 L Hct 22.2 L Prot Corrected Calcium 8.3 L Total Protein 5.2 L D - Imaging Impressions Hip X-Ray 11/01/17 00:00 CONCLUSION: Anatomic alignment in the AP projection. Assessment and Plan - Plan 76 years old female with Right intertrochanteric hip fracture s/p Right hip repair 11/01/17 management per Ortho PT to treat and eval Pain management accordingly Hypertension Continue home clonidine and lisinopril BP stable, mild tachycardia noted possibly secondary to anxiety Anxiety/depression Continue home Xanax patient does not want any eval from Psychiatry GERD Continue home ranitidine DVT prophylaxisLovenox
[2017-11-03] MEDS ORDERED: Sodium Chlor 0.9% Inj 250 ML IV.SIG SCH (10:00)
[2017-11-03 10:15] LABS: Calcium 8.1 mg/dL (8.5-10.1); Carbon Dioxide 27.2 meq/L (21.0-32.0); Potassium 3.9 meq/L (3.5-5.1)
[2017-11-03] MEDS ORDERED: Naloxone Inj 0.4 MG/ML Vial IV.PUSH ONE (11:47)
[2017-11-03] MEDS ORDERED: Sod Chloride 0.9% Inj 1,000 ML IV.SIG ONE (11:49)
[2017-11-03] MEDS ORDERED: Phenylephrine Inj 40 MG in Dextrose 5% in Water Inj 496 ML IV.CONT PRN ×2 (12:32)
[2017-11-03] MEDS ORDERED: Phenylephrine Inj 40 MG in Sodium Chlor 0.9% Inj 496 ML IV.CONT PRN (12:32)
[2017-11-03] MEDS: guaiFENesin 600 MG ER Tablet PO PRN (16:42)
[2017-11-03 19:46] LABS: Hematocrit 24.3 % (35.0-46.0); Hemoglobin 8.2 gm/dL (11.6-15.3)
--- NOTE | 2017-11-03 21:15 | ECG ---
Date Performed: 11/03/2017 Time Performed: 10:29:06 PTAGE: 76 years EKG: SINUS TACHYCARDIA INDETERMINATE AXIS LOW QRS VOLTAGE IN PRECORDIAL LEADS RIGHT BUNDLE BRANC H BLOCK ST DEVIATION AND MODERATE T-WAVE ABNORMALITY, CONSIDER ANTERIOR ISCHEMIA ABNORMAL ECG PREVIOUS TRACING : 11/01/2017 02.11 Since the previous tracing, no significant change noted DOCTOR: Jose De Jesus Maria Interpretating Date/Time 11/03/2017 21:15:12
[2017-11-03] MEDS: ALPRAZolam 0.5 MG Tablet PO SCH (21:48)
[2017-11-03] MEDS: Budesonide-Formoterol 80/4.5 MCG 6.9 GM Inhaler INH SCH (21:48)
[2017-11-04 04:17] LABS: Hematocrit 23.6 % (35.0-46.0); Hemoglobin 8.3 gm/dL (11.6-15.3); Mean Corpuscular Hemoglobin 31.5 pg (27.0-34.0); Mean Corpuscular Volume 89.9 fL (80.0-100.0); Mean Platelet Volume 8.6 fL (7.0-11.0); Platelet Count 152 th/mm3 (150-450); Red Blood Count 2.63 mil/mm3 (4.00-5.30); Red Cell Distribution Width 13.7 % (11.6-17.2); White Blood Count 6.6 th/mm3 (4.0-11.0)
[2017-11-04 04:39] LABS: Anion Gap 7 meq/L (5-15); Blood Urea Nitrogen 8 mg/dL (7-18); Calcium 7.6 mg/dL (8.5-10.1); Carbon Dioxide 26.8 meq/L (21.0-32.0); Chloride 105 meq/L (98-107); Glomerular Filtration Rate Greater Than 89 mL/min (>89); Glucose,Random 97 mg/dL (74-106); Sodium 139 meq/L (136-145)
--- NOTE | 2017-11-04 08:06 | P.PNOP ---
Subjective Interval history: doing ok. transferred to icu yesterday due to hypotension. Physical Exam Vital signs: Vital Signs 11/03/17 11:20 11/03/17 11:26 11/03/17 11:35 Temperature 98.2 F Pulse Rate 88 88 88 Respiratory Rate 24 Blood Pressure 67/42 L 78/38 L 67/41 L Pulse Oximetry 97 97 11/03/17 11:40 11/03/17 11:45 11/03/17 12:47 Temperature 98.0 F Pulse Rate 89 87 86 Respiratory Rate 25 H Blood Pressure 76/48 L 79/50 L 79/47 L Pulse Oximetry 98 87 L 96 11/03/17 13:46 11/03/17 16:00 11/03/17 20:00 Temperature 98.0 F 98.7 F 98.6 F Pulse Rate 82 94 H 86 Respiratory Rate 20 21 22 Blood Pressure 89/50 L 96/52 L 112/53 L Pulse Oximetry 100 94 L 11/03/17 20:37 11/03/17 23:36 11/04/17 00:00 Temperature 98.6 F Pulse Rate 84 Respiratory Rate 18 20 Blood Pressure 114/62 Pulse Oximetry 100 95 11/04/17 04:00 11/04/17 05:07 Temperature 98.7 F Pulse Rate 95 H Respiratory Rate 18 25 H Blood Pressure 123/59 L Pulse Oximetry 94 L Intake & Output 11/03/17 11/04/17 11/04/17 18:59 06:59 18:59 Intake Total 1130 / 1130 600 / 600 Balance 1130 / 1130 600 / 600 Weight 62 kg Intake: Oral 480 / 480 600 / 600 Other 250 / 250 Rbc As-3 Leukoreduced Unit 250 / 250 [id number] Intake (Blood Product) Amt 400 / 400 Rbc As-3 Leukoreduced Unit 400 / 400 [id number] Other: Other Intake Source Rbc As-3 Leukoreduced Unit Saline Solution [id number] # Voids 1 8 Date of Last Bowel Movement 11/02/17 11/02/17 Narrative: in bed, nad mild drainage on dressing moderate ecchymosis R hip thigh soft neg homans nvi - Urinary Catheter Management Indwelling Urethral Catheter Cath placed during this visit: yes, but has since been removed by the nurse Reason for continuing: Hourly intake/output Insertion date: 11/01/17 Insertion time: 03:52 Removal date: 11/02/17 Removal time: 12:00 Results - Labs CBC & Chem 7: 11/04/17 03:36 11/04/17 03:36 Laboratory Results - last 24 hr 11/03/17 11/03/17 11/03/17 07:18 08:50 10:57 WBC RBC Hgb 7.7 L Hct 22.2 L MCV MCH MCHC RDW Plt Count MPV Sodium 138 Potassium 3.9 Chloride 105 Carbon Dioxide 27.2 Anion Gap 6 BUN 11 Creatinine 0.81 Estimated GFR 68 L Random Glucose 112 H Calcium 8.1 L D MTS Gel Crossmatch See Detail 11/03/17 11/04/17 11/04/17 18:21 03:36 03:36 WBC 6.6 RBC 2.63 L Hgb 8.2 L 8.3 L Hct 24.3 L 23.6 L MCV 89.9 MCH 31.5 MCHC 35.0 RDW 13.7 Plt Count 152 MPV 8.6 Sodium 139 Potassium 4.0 Chloride 105 Carbon Dioxide 26.8 Anion Gap 7 BUN 8 Creatinine 0.61 Estimated GFR Greater than 89 Random Glucose 97 Calcium 7.6 L MTS Gel Crossmatch - Imaging Impressions Hip X-Ray 11/01/17 00:00 CONCLUSION: Anatomic alignment in the AP projection. Assessment and Plan - Ortho Post Op Day # 3 - Assessment and Plan s/p R troch nail 50% pwb daily dressing changes lovenox try tramadol moderate ecchymosis R hip, monitor for now, may need to d/c lovenox if progresses d/c planning to snf f/up dr. cadet 2 weeks
[2017-11-04] MEDS: Multivitamin/Minerals Therapeutic Tablet PO SCH (08:34)
[2017-11-04] MEDS: Enoxaparin Inj 40 MG/0.4 ML Syringe SQ SCH (08:35)
[2017-11-04] MEDS: Famotidine 20 MG Tablet PO SCH (08:35)
[2017-11-04] MEDS: Folic Acid 1 MG Tablet PO SCH (08:35)
[2017-11-04] MEDS: Senna/Docusate Sodium 8.6/50 MG Tablet PO SCH ×2 (08:35→21:00)
[2017-11-04] MEDS: Budesonide-Formoterol 80/4.5 MCG 6.9 GM Inhaler INH SCH ×2 (10:50→21:40)
--- NOTE | 2017-11-04 12:37 | P.PNIM ---
Subjective Interval history: Says she is feeling well. Denies any chest pain shortness of breath. Off levo fed. Discussed with nursing. Physical Exam Vital signs: Vital Signs 11/03/17 12:47 11/03/17 13:46 11/03/17 16:00 Temperature 98.0 F 98.0 F 98.7 F Pulse Rate 86 82 94 H Respiratory Rate 25 H 20 21 Blood Pressure 79/47 L 89/50 L 96/52 L Pulse Oximetry 96 100 11/03/17 20:00 11/03/17 20:37 11/03/17 23:36 Temperature 98.6 F Pulse Rate 86 Respiratory Rate 22 18 Blood Pressure 112/53 L Pulse Oximetry 94 L 100 11/04/17 00:00 11/04/17 04:00 11/04/17 05:07 Temperature 98.6 F 98.7 F Pulse Rate 84 95 H Respiratory Rate 20 18 25 H Blood Pressure 114/62 123/59 L Pulse Oximetry 95 94 L 11/04/17 08:00 Temperature 97.7 F Pulse Rate 90 Respiratory Rate 18 Blood Pressure 109/57 L Pulse Oximetry 98 Intake & Output 11/03/17 11/04/17 11/04/17 18:59 06:59 18:59 Intake Total 1130 / 1130 600 / 600 Balance 1130 / 1130 600 / 600 Weight 62 kg Intake: Oral 480 / 480 600 / 600 Other 250 / 250 Rbc As-3 Leukoreduced Unit 250 / 250 [id number] Intake (Blood Product) Amt 400 / 400 Rbc As-3 Leukoreduced Unit 400 / 400 [id number] Other: Other Intake Source Rbc As-3 Leukoreduced Unit Saline Solution [id number] # Voids 1 8 Date of Last Bowel Movement 11/02/17 11/02/17 11/02/17 Narrative: GENERAL: Patient lying in bed. Appears comfortable. SKIN: Warm and dry. HEAD: Normocephalic. EYES: No scleral icterus. No injection or drainage. NECK: Supple, trachea midline. No JVD. CARDIOVASCULAR: Regular rate and rhythm without murmurs, gallops, or rubs. RESPIRATORY: Breath sounds equal bilaterally. No accessory muscle use. GASTROINTESTINAL: Abdomen soft, non-tender, nondistended. MUSCULOSKELETAL: No cyanosis, or edema. Right leg with some ecchymosis, no significant hematoma. No bleeding. Incision dressed with dressing clean dry and intact. BACK: Nontender without obvious deformity. No CVA tenderness. - Urinary Catheter Management Indwelling Urethral Catheter Cath placed during this visit: yes, but has since been removed by the nurse Reason for continuing: Hourly intake/output Insertion date: 11/01/17 Insertion time: 03:52 Removal date: 11/02/17 Removal time: 12:00 Results - Labs CBC & Chem 7: 11/04/17 03:36 11/04/17 03:36 Laboratory Results - last 24 hr 11/03/17 11/03/17 11/04/17 10:57 18:21 03:36 WBC 6.6 RBC 2.63 L Hgb 8.2 L 8.3 L Hct 24.3 L 23.6 L MCV 89.9 MCH 31.5 MCHC 35.0 RDW 13.7 Plt Count 152 MPV 8.6 Sodium Potassium Chloride Carbon Dioxide Anion Gap BUN Creatinine Estimated GFR Random Glucose Calcium MTS Gel Crossmatch See Detail 11/04/17 03:36 WBC RBC Hgb Hct MCV MCH MCHC RDW Plt Count MPV Sodium 139 Potassium 4.0 Chloride 105 Carbon Dioxide 26.8 Anion Gap 7 BUN 8 Creatinine 0.61 Estimated GFR Greater than 89 Random Glucose 97 Calcium 7.6 L MTS Gel Crossmatch Assessment and Plan - Plan 76 years old female with //Right intertrochanteric hip fracture s/p Right hip repair 11/01/17 management per Ortho PT to treat and eval Pain management accordingly //Hypertension Continue home lisinopril = Discontinue clonidine //Hypotension on 11/03. Likely secondary to receiving clonidine 0.5 mg. Patient says she only takes clonidine at home when blood pressure is over 140 systolic. //Anxiety/depression Continue home Xanax patient does not want any eval from Psychiatry //GERD Continue home ranitidine DVT prophylaxisLovenox Discharge Planning: Patient off Levophed drip. Transfer to floor. If stable plan for discharge to SNF tomorrow if accepted.
[2017-11-04] MEDS: Sod Chloride 0.9% Inj 1,000 ML IV.CONT SCH ×2 (13:58)
[2017-11-04] MEDS: guaiFENesin 600 MG ER Tablet PO PRN (15:32)
[2017-11-04] MEDS: ALPRAZolam 0.5 MG Tablet PO SCH (22:00)
[2017-11-05 05:52] VITALS: O2SAT 93
[2017-11-05] MEDS: Sod Chloride 0.9% Inj 1,000 ML IV.CONT SCH (05:59)
[2017-11-05] MEDS: Enoxaparin Inj 40 MG/0.4 ML Syringe SQ SCH (08:00)
--- NOTE | 2017-11-05 08:16 | P.PNOP ---
Subjective Interval history: pain improving. denies cp and sob. Physical Exam Vital signs: Vital Signs 11/04/17 12:00 11/04/17 16:00 11/04/17 18:05 Temperature 97.9 F 97.8 F 98.4 F Pulse Rate 97 H 105 H 99 H Respiratory Rate 18 Blood Pressure 110/55 L 134/61 108/59 L Pulse Oximetry 98 93 L 94 L 11/04/17 20:00 11/05/17 00:00 11/05/17 04:00 Temperature 98.3 F 98.3 F 98 F Pulse Rate 113 H 107 H 110 H Respiratory Rate 18 Blood Pressure 121/58 L 132/61 151/75 H Pulse Oximetry 95 94 L 93 L Intake & Output 11/04/17 11/05/17 11/05/17 18:59 06:59 18:59 Intake Total 525 / 525 140 / 140 Balance 525 / 525 140 / 140 Weight 56.699 kg Intake: Oral 525 / 525 140 / 140 Other: # Voids 1 3 Date of Last Bowel Movement 11/02/17 Narrative: in bed, nad dressing with bloody drainage extensive ecchymosis R thigh neg homans nvi - Urinary Catheter Management Indwelling Urethral Catheter Cath placed during this visit: yes, but has since been removed by the nurse Reason for continuing: Hourly intake/output Insertion date: 11/01/17 Insertion time: 03:52 Removal date: 11/02/17 Removal time: 12:00 Results - Labs CBC & Chem 7: 11/04/17 03:36 11/04/17 03:36 Assessment and Plan - Ortho Post Op Day # 4 - Assessment and Plan s/p R troch nail 50% pwb daily dressing changes d/c lovenox due to extensive ecchymosis, swelling of thigh and drainage from incisions. risks outweigh benefits at this point. discussed with patient and she agrees ankle pumps, SCDs tramadol d/c planning to snf - ortho stable f/up dr. cadet 2 weeks
[2017-11-05] MEDS: Budesonide-Formoterol 80/4.5 MCG 6.9 GM Inhaler INH SCH (08:38)
[2017-11-05] MEDS: Folic Acid 1 MG Tablet PO SCH (08:38)
[2017-11-05] MEDS: Famotidine 20 MG Tablet PO SCH (08:39)
[2017-11-05] MEDS: Senna/Docusate Sodium 8.6/50 MG Tablet PO SCH (08:39)
[2017-11-05] MEDS: Multivitamin/Minerals Therapeutic Tablet PO SCH (08:39)
[2017-11-05 08:48] VITALS: BP 150/75; PULSE 113; TEMP 97.8
--- NOTE | 2017-11-05 11:17 | P.PNIM ---
Subjective Interval history: Patient says she is feeling well. Denies any chest pain shortness of breath. Denies nausea vomiting. Physical Exam Vital signs: Vital Signs 11/04/17 12:00 11/04/17 16:00 11/04/17 18:05 Temperature 97.9 F 97.8 F 98.4 F Pulse Rate 97 H 105 H 99 H Respiratory Rate 18 Blood Pressure 110/55 L 134/61 108/59 L Pulse Oximetry 98 93 L 94 L 11/04/17 20:00 11/05/17 00:00 11/05/17 04:00 Temperature 98.3 F 98.3 F 98 F Pulse Rate 113 H 107 H 110 H Respiratory Rate 18 18 Blood Pressure 121/58 L 132/61 151/75 H Pulse Oximetry 95 94 L 93 L 11/05/17 08:00 Temperature 97.8 F Pulse Rate 113 H Respiratory Rate 16 Blood Pressure 150/75 H Pulse Oximetry 93 L Intake & Output 11/04/17 11/05/17 11/05/17 18:59 06:59 18:59 Intake Total 525 / 525 140 / 140 Balance 525 / 525 140 / 140 Weight 56.699 kg Intake: Oral 525 / 525 140 / 140 Other: # Voids 1 3 Date of Last Bowel Movement 11/02/17 11/05/17 Narrative: GENERAL: Patient lying in bed. Appears comfortable. SKIN: Warm and dry. HEAD: Normocephalic. EYES: No scleral icterus. No injection or drainage. NECK: Supple, trachea midline. No JVD. CARDIOVASCULAR: Regular rate and rhythm without murmurs, gallops, or rubs. RESPIRATORY: Breath sounds equal bilaterally. No accessory muscle use. GASTROINTESTINAL: Abdomen soft, non-tender, nondistended. MUSCULOSKELETAL: No cyanosis, or edema. Right hip with some ecchymosis. Dressing clean dry and intact. BACK: Nontender without obvious deformity. No CVA tenderness. - Urinary Catheter Management Indwelling Urethral Catheter Cath placed during this visit: yes, but has since been removed by the nurse Reason for continuing: Hourly intake/output Insertion date: 11/01/17 Insertion time: 03:52 Removal date: 11/02/17 Removal time: 12:00 Results - Labs CBC & Chem 7: 11/04/17 03:36 11/04/17 03:36 Assessment and Plan - Plan 76 years old female with //Right intertrochanteric hip fracture s/p Right hip repair 11/01/17 management per Ortho PT to treat and eval Pain management accordingly //Hypertension Continue home lisinopril = Discontinue clonidine = 11/05. Blood pressure acceptable. Okay with blood pressures under 160 systolic. //Hypotension on 11/03. Likely secondary to receiving clonidine 0.5 mg. Patient says she only takes clonidine at home when blood pressure is over 140 systolic. = Resolved. Secondary to high dose of clonidine. //Anxiety/depression Continue home Xanax -Patient denies any suicidal ideation. patient does not want any eval from Psychiatry //GERD Continue home ranitidine DVT prophylaxisLovenox Discharge Planning: Discharge to rehab when accepted.
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
[2017-11-05 12:15] VITALS: RESP 18
== END 2017-11-05 13:01 ==
LOC: NEPC 01:03 → NEDA 03:13 → N06 05:07 → N03 11-03 12:13 → N06 11-04 17:09
PROVIDERS: ADMIT Internal Medicine; ATTEND Internal Medicine